=== PATIENT | female | born 1985 ===

== ENCOUNTER → 2020-12-05 | Emergency (ER) | payer SELFPAY ==
[~2020-12-05] VITALS: Ht 157.5 cm; Wt 59.9 kg
[~2020-12-05] MED LIST: AZITHROMYCIN 250 MG TAB PO ONE
[2020-12-06 04:41] VITALS: BP 121/74
== END | disposition home or self-care (01) ==
LOC: ER 20:47
DX: U07.1 COVID-19 (principal)
CPT/HCPCS: 36415; 71045; 87426